=== PATIENT | female | born 1950 | race Caucasian/White ===

== ENCOUNTER 2017-05-22 11:38 | Observation (INO) ==
--- NOTE | 2017-05-22 11:52 | Emergency Department Note ---
Disposition Clinical Impression: Weakness, UTI (urinary tract infection), Frail elderly, Diabetes, Hyperglycemia , COPD (chronic obstructive pulmonary disease), Abnormal liver function test, Renal insufficiency, History of prolapse of bladder, Diverticulosis, Hepatic steatosis Disposition: Admitted As Inpatient Referrals: NO,PCP [Non-Partnered Physician] - General Adult HPI - General Chief complaint: ED Urogenital-Female Stated complaint: UTI Time Seen by Provider: 05/22/17 11:50 Source: patient - History of Present Illness HPI Narrative: 66-year-old female reports emergency department complaining of dysuria. She states she has had burning with her urination over the last several days. She states she went an urgent care had a urinalysis test, she was placed on ciprofloxacin. They called later and reported that the patient had a negative urine culture and recommended she discontinue the antibiotic. The patient reports she has had problems with a prolapsed bladder mostly. She denies abdominal pain vomiting diarrhea or vaginal discharge or bleeding. There is no history of tissue protruding from the vagina. She has been able to void. No back pain. No previous history of kidney stones. She is diabetic type II. The patient is COPD and does wear oxygen. She denies acute shortness of breath or chest pain. No leg swelling or pain or coughing up blood. No acute back pain. No bowel problems or difficulty voiding. Pain is backs of the legs. No trouble moving the arms or legs independently. No unilateral arm or leg weakness or numbness no bowel or bladder problems otherwise. The patient describes persistent dysuria. No history of external vaginal lesion or redness. Pain Scale: 10 - Related Data Home Medications Medication Instructions Recorded Confirmed Atenolol/Chlorthalidone [Tenoretic 1 each PO 05/19/17 05/19/17 50 Tablet] Canagliflozin [Invokana] 300 mg PO 05/19/17 Cholecalciferol (Vitamin D3) 1,000 unit PO 05/19/17 [Vitamin D] FLUoxetine HCl [PROzac] 20 mg PO 05/19/17 Lisinopril [Zestril] 40 mg PO 05/19/17 Omeprazole [Omeprazole] 05/19/17 Oxygen 1 each .ROUTE AD 05/19/17 05/19/17 Ropinirole HCl [Requip] 2 mg PO 05/19/17 Tizanidine HCl [Tizanidine HCl] 05/19/17 Previous Rx's Medication Instructions Recorded Ciprofloxacin [Cipro] 500 mg PO BID #14 tablet 05/19/17 Phenazopyridine HCl [Pyridium] 200 mg PO TID #6 tab 05/19/17 Allergies Allergy/AdvReac Type Severity Reaction Status Date / Time No Known Allergies Allergy Verified 05/19/17 15:59 All systems ED: reviewed and negative except as stated. Past Medical History - Past Medical History Medical history: Reports: non-contributory, COPD, diabetes, hypertension Psychiatric history: Reports: depression - Social History Smoking Status: Former smoker Smokeless Tobacco Status: No Alcohol use: Reports: none Drug use: Reports: none Physical Exam - General Limitations: no limitations General appearance: alert, in no apparent distress - Head Head exam: atraumatic, normocephalic, normal inspection - Eye Eye exam: Present: normal appearance, PERRL, EOMI. Absent: scleral icterus, conjunctival injection, miosis, mydriasis - ENT ENT exam: normal exam, normal oropharynx, mucous membranes moist, TM's normal bilaterally, normal external ear exam - Neck Neck exam: Present: normal inspection, full ROM, trachea midline. Absent: tenderness - Chest Chest inspection: Present: symmetric chest wall rise. Absent: tenderness - Respiratory Respiratory exam: Present: normal lung sounds bilaterally. Absent: respiratory distress, wheezes, stridor, accessory muscle use, prolonged expiratory phase - Cardiovascular Cardiovascular exam: Present: regular rate, normal rhythm, normal heart sounds - Abdominal Exam Abdominal exam: Present: soft, Non-Tender, normal bowel sounds. Absent: tenderness, distention, guarding, rebound, rigidity, pulsatile mass - Extremities Exam Extremities exam: Present: normal inspection, full ROM, normal capillary refill. Absent: tenderness, pedal edema, joint swelling, calf tenderness - Expanded Lower Extremity Exam Neurovascular/Tendon exam: Present: normal capillary refill. Absent: motor deficit, sensory deficit, tendon deficit, extremity cold to touch, pallor - Back Exam Back exam: Present: normal inspection, full ROM. Absent: tenderness, CVA tenderness (R), CVA tenderness (L), vertebral tenderness - Neurological Exam Neurological exam: Present: alert, oriented X3, CN II-XII intact. Absent: motor sensory deficit - Psychiatric Psychiatric exam: Present: normal affect, normal mood - Skin Skin exam: Present: warm, dry, intact, normal color. Absent: rash, cyanosis, diaphoresis, erythema, pallor, mottled Course Vital Signs Temperature 98 F 05/22/17 11:40 Pulse Rate 80 05/22/17 11:40 Respiratory Rate 18 05/22/17 11:40 Blood Pressure 112/63 05/22/17 11:40 O2 Sat by Pulse Oximetry 92 05/22/17 11:40 Temperature 98 F 05/22/17 11:40 Pulse Rate 78 05/22/17 14:38 Respiratory Rate 18 05/22/17 14:38 Blood Pressure 129/77 05/22/17 14:38 O2 Sat by Pulse Oximetry 94 05/22/17 14:38 Oxygen Delivery Oxygen Delivery Nasal Cannula Medical Decision Making - MDM Narrative Medical decision making narrative: The patient is elderly, has diabetes, her glucose is elevated, her BUN and creatinine are also elevated compared to previous. She describes weakness, there may be an element of dehydration. IV fluids were given. Rocephin ordered. Urine culture ordered. The patient appears to have failed outpatient therapy or was partially treated with ciprofloxacin. Based on her age, diabetes , uncontrolled glucose, apparent dehydration, complaints of weakness, COPD and hypoxemia, with significant urinary infectious changes, apparent partially treated UTI or failed outpatient therapy, stripper bladder prolapse, and significant urinary symptomatology, I thought it would be appropriate to admit the patient the hospital. I discussed the case with the hospitalist on-call who has accepted the patient to their care. - Lab Data Lab results reviewed: Yes I reviewed the patient's lab results. Result diagrams: 05/22/17 12:57 05/22/17 12:57 Lab Results 05/22/17 05/22/17 05/22/17 Range/Units 12:11 12:57 12:57 WBC 9.8 (4.3-11.1) K/mcL RBC 5.38 H (3.82-4.97) M/mcL Hgb 14.0 (11.5-15.4) g/dL Hct 44.4 (35.3-44.9) % MCV 82.5 L (83.0-100.0) fL MCH 26.0 L (28.0-33.3) pg MCHC 31.5 L (31.6-35.5) g/dL RDW 14.2 (11.5-14.5) % Plt Count 213 (140-400) K/mcL MPV 9.9 (9.4-12.4) fL Immature Gran % 0.8 (0-4) % Seg Neutrophils % 72.3 % Lymphocytes % 18.6 % Monocytes % 5.0 % Eosinophils % 2.8 % Basophils % 0.5 % Neutrophils # 7.1 (1.6-8.9) K/mcL Lymphocytes # 1.8 (0.6-4.6) K/mcL Monocytes # 0.5 (0.0-1.3) K/mcL Eosinophils # 0.3 (0.0-0.6) K/mcL Basophils # 0.1 (0.0-0.2) K/mcL Sodium 138 (136-145) mEq/L Potassium 3.9 (3.5-4.5) mEq/L Chloride 99 (98-109) mEq/L Carbon Dioxide 28 (19-29) mEq/L BUN 30 H (7-20) mg/dL Creatinine 1.64 H (0.57-1.11) mg/dL Est GFR ( Amer) 38 L (> 60) Est GFR (Non-Af Amer) 31 L (> 60) BUN/Creatinine Ratio 18 (6-26) Glucose 368 H (70-99) mg/dL Calculated Osmolality 307 H (280-300) Lactic Acid (0.5-2.2) mmol/L Calcium 10.3 (8.6-10.8) mg/dL Magnesium 1.7 (1.6-2.6) mg/dL Total Bilirubin (0.2-1.2) mg/dL Direct Bilirubin (0.0-0.5) mg/dL Indirect Bilirubin (0.0-1.2) mg/dL AST (5-34) Units/L ALT (0-55) Units/L Alkaline Phosphatase (38-126) Units/L Troponin I (0-0.03) ng/mL C-Reactive Protein (Less than 5) mg/L Serum Total Protein (6.0-8.3) g/dL Albumin (3.5-5.0) g/dL Globulin (2.4-3.5) g/dL Albumin/Globulin Ratio (1.1-2.2) Urine Color Dark Yellow (Yellow) Urine Clarity Cloudy A (Clear) Urine pH 5.5 (5.0-8.0) pH Units Ur Specific [place] > 1.030 H (1.010-1.025) Urine Protein Trace (Neg-Trace) mg/dL Urine Glucose (UA) >=1000 H (Normal) mg/dL Urine Ketones Negative (Negative) mg/dL Urine Blood Small H (Negative) Urine Nitrite Negative (Negative) Urine Bilirubin Negative (Negative) Urine Urobilinogen Normal (Normal) mg/dL Ur Leukocyte Esterase Moderate H (Negative) Urine Microscopic RBC 15-30 H (0-3) per hpf Urine Microscopic WBC TNTC H (0-3) per hpf Ur Squamous Epith Cells Many H (None-Few) per lpf Urine Bacteria Moderate H (None-Few) per hpf Hyaline Casts None Seen (None-Few) per lpf Ur Culture Indicated? YES A (NO) 05/22/17 05/22/17 05/22/17 Range/Units 12:57 12:57 12:57 WBC (4.3-11.1) K/mcL RBC (3.82-4.97) M/mcL Hgb (11.5-15.4) g/dL Hct (35.3-44.9) % MCV (83.0-100.0) fL MCH (28.0-33.3) pg MCHC (31.6-35.5) g/dL RDW (11.5-14.5) % Plt Count (140-400) K/mcL MPV (9.4-12.4) fL Immature Gran % (0-4) % Seg Neutrophils % % Lymphocytes % % Monocytes % % Eosinophils % % Basophils % % Neutrophils # (1.6-8.9) K/mcL Lymphocytes # (0.6-4.6) K/mcL Monocytes # (0.0-1.3) K/mcL Eosinophils # (0.0-0.6) K/mcL Basophils # (0.0-0.2) K/mcL Sodium (136-145) mEq/L Potassium (3.5-4.5) mEq/L Chloride (98-109) mEq/L Carbon Dioxide (19-29) mEq/L BUN (7-20) mg/dL Creatinine (0.57-1.11) mg/dL Est GFR ( Amer) (> 60) Est GFR (Non-Af Amer) (> 60) BUN/Creatinine Ratio (6-26) Glucose (70-99) mg/dL Calculated Osmolality (280-300) Lactic Acid 1.8 (0.5-2.2) mmol/L Calcium (8.6-10.8) mg/dL Magnesium (1.6-2.6) mg/dL Total Bilirubin 0.7 (0.2-1.2) mg/dL Direct Bilirubin 0.3 (0.0-0.5) mg/dL Indirect Bilirubin 0.4 (0.0-1.2) mg/dL AST 64 H (5-34) Units/L ALT 61 H (0-55) Units/L Alkaline Phosphatase 101 (38-126) Units/L Troponin I 0.02 (0-0.03) ng/mL C-Reactive Protein 27 H (Less than 5) mg/L Serum Total Protein 7.6 (6.0-8.3) g/dL Albumin 3.7 (3.5-5.0) g/dL Globulin 3.9 H (2.4-3.5) g/dL Albumin/Globulin Ratio 0.9 L (1.1-2.2) Urine Color (Yellow) Urine Clarity (Clear) Urine pH (5.0-8.0) pH Units Ur Specific [place] (1.010-1.025) Urine Protein (Neg-Trace) mg/dL Urine Glucose (UA) (Normal) mg/dL Urine Ketones (Negative) mg/dL Urine Blood (Negative) Urine Nitrite (Negative) Urine Bilirubin (Negative) Urine Urobilinogen (Normal) mg/dL Ur Leukocyte Esterase (Negative) Urine Microscopic RBC (0-3) per hpf Urine Microscopic WBC (0-3) per hpf Ur Squamous Epith Cells (None-Few) per lpf Urine Bacteria (None-Few) per hpf Hyaline Casts (None-Few) per lpf Ur Culture Indicated? (NO) - Radiology Data Radiology results reviewed: Yes I reviewed the patient's radiology results.
[2017-05-22 12:44] LABS: Bilirubin,Urine Negative (Negative); Blood,Urine Small (Negative); Clarity,Urine Cloudy (Clear); Color,Urine Dark Yellow (Yellow); Glucose,Urine (UA) >=1000 mg/dL (Normal); Ketones,Urine Negative (Negative); Leukocyte Esterase,Urine Moderate (Negative); Nitrite,Urine Negative (Negative); PH,Urine 5.5 pH Units (5.0-8.0); Protein,Urine Trace mg/dL (Neg-Trace); Specific Gravity,Urine > 1.030 (1.010-1.025); Urobilinogen,Urine Normal (Normal)
[2017-05-22 12:47] LABS: Bacteria,Urine Moderate per hpf (None-Few); Hyaline Casts,Urine None Seen per lpf (None-Few); RBC,Urine 15-30 per hpf (0-3); Squamous Epithelial Cell,Urine Many per lpf (None-Few); WBC,Urine TNTC per hpf (0-3)
[2017-05-22 13:07] LABS: Basophils # 0.1 K/mcL (0.0-0.2); Basophils % 0.5 %; Eosinophils # 0.3 K/mcL (0.0-0.6); Eosinophils % 2.8 %; Hematocrit 44.4 % (35.3-44.9); Immature Granulocytes % 0.8 % (0-4); Lymphocytes # 1.8 K/mcL (0.6-4.6); Lymphocytes % 18.6 %; Mean Corpuscular HGB Conc 31.5 g/dL (31.6-35.5); Mean Corpuscular Volume 82.5 fL (83.0-100.0); Mean Platelet Volume 9.9 fL (9.4-12.4); Monocytes # 0.5 K/mcL (0.0-1.3); Neutrophils # 7.1 K/mcL (1.6-8.9); Platelet Count 213 K/mcL (140-400); Red Blood Count 5.38 M/mcL (3.82-4.97); Red Cell Distribution Width 14.2 % (11.5-14.5); Segmented Neutrophils % 72.3 %
[2017-05-22 13:25] LABS: Albumin 3.7 g/dL (3.5-5.0); Albumin/Globulin Ratio 0.9 (1.1-2.2); Bilirubin,Direct 0.3 mg/dL (0.0-0.5); Bilirubin,Indirect 0.4 mg/dL (0.0-1.2); Bilirubin,Total 0.7 mg/dL (0.2-1.2); Calcium 10.3 mg/dL (8.6-10.8); Globulin 3.9 g/dL (2.4-3.5); Magnesium 1.7 mg/dL (1.6-2.6); Potassium 3.9 mEq/L (3.5-4.5); Total Protein 7.6 g/dL (6.0-8.3)
[2017-05-22] MEDS ORDERED: 0.9 % Sodium Chloride 1,000 ML IVC ONE (14:11)
[2017-05-22] MEDS ORDERED: Naloxone 0.4 MG/ML INJ IVP PRN (16:08)
[2017-05-22] MEDS ORDERED: *HR* OxyCODONE Immed Rel 5 MG TABLET PO PRN (16:08)
[2017-05-22] MEDS ORDERED: Acetaminophen 325 MG TABLET PO PRN (16:08)
[2017-05-22] MEDS ORDERED: Ondansetron 4 MG/2 ML VIAL IVP PRN (16:08)
[2017-05-22] MEDS ORDERED: Dextrose Gel 15 GM PO PRN ×2 (16:09)
[2017-05-22] MEDS ORDERED: D5% in Water 1,000 ML IVC PRN (16:09)
[2017-05-22] MEDS ORDERED: *HR* Dextrose 50 % in Water (Syg) 50 ML SYRINGE IVP PRN (16:09)
--- NOTE | 2017-05-22 16:20 | Internal Med History&Physical ---
Date of Encounter: 05/22/17 Time of Encounter: 16:00 Assessment and Plan (1) FAUSTINA (acute kidney injury) Current visit: Yes Status: Acute Serum creatinine noted to be around 1 at baseline, currently 1.6; probably mild dehydration and urine retention with use of diuretics/NSAIDs/ACEI; will start IV hydration and hold Lisinopril, Chlorthalidone for now. Will check bladder ultrasound for anatomic abnormality/retention; (2) UTI (urinary tract infection) Current visit: Yes Status: Acute Urine culture from 05/19 shows no bacterial growth. However symptoms along with h/o- bladder prolapse and suprapubic tenderness, UA with modertae leukocyte esterase, TNTC WBC, moderate bacteria, are c/w UTI/acute cystitis. Will start empiric antibiotics with IV Rocephin and f/up urine culture. Pyridium along with PRN Percocet for pain control. IV hydration. Qualifiers: Urinary tract infection type: acute cystitis Hematuria presence: without hematuria Qualified Code(s): N30.00 - Acute cystitis without hematuria (3) Diabetes Current visit: Yes Status: Chronic Currently has hyperglycemia and uncontrolled DM. No e/o- DKA/HHONKS. Start Accucheck blood glucose monitoring with basal bolus insulin regimen. Check HbA1C. Diabetic diet. Qualifiers: Diabetes mellitus type: type 2 Diabetes mellitus complication status: with hyperglycemia Diabetes mellitus custodial insulin use: with termite treater use Qualified Code(s): E11.65 - Type 2 diabetes mellitus with hyperglycemia; Z79.4 - FPC (current) use of insulin (4) COPD (chronic obstructive pulmonary disease) Current visit: Yes Status: Chronic Not in acute exacerbation. Continue PRN bronchodilators and supplemental O2; noted to be on 3L/min home O2; Qualifiers: COPD type: emphysema Emphysema type: unspecified Qualified Code(s): J43.9 - Emphysema, unspecified (5) History of prolapse of bladder Current visit: Yes Status: Chronic recommended surgery in the past but could not afford it per patient; (6) Hepatic steatosis Current visit: Yes Status: Chronic CT abdomen shows hepatomegaly and steatosis; AST/ALT mildly elevated; low fat diet; check lipid panel; Internal Medicine - H&P: HPI Chief complaint: Dysuria Admitted From: Emergency Dept Plans for Post Hospital Care: Home History of present illness: Ms. Ritter is a 66 year old female with h/o- DM, bladder prolapse presents with c/o- burning micturition for the past 1 week. SHe reports no increased frequency of urination but does have significant burning pain like a 'bee sting ' every time she urinates. No definite h/o- hematuria as she reports orange colored urine due to Pyridium use. No reported fever/chills, abdominal pain, nausea/emesis, dyspnea. Was seen at Urgent care 3-4 days ago and was discharged on Ciprofloxacin for possible UTI, which she took for 1-2 doses after which she received a call from the Urgent Care stating that her urine culture grew no bacteria and recommended to stop the antibiotics. Past Med Surg Social Fam HX - Past Medical History Medical history: COPD, diabetes, hypertension Psychiatric history: depression - Past Surgical History Surgical History: hysterectomy - Social History Smoking Status: Former smoker (quit 6yrs ago; smoked 1pack per day for 40years) Smokeless Tobacco Status: No Alcohol use: none Drug use: none Current living situation: Home, With Family Activity Level: Independent ambulation Recent Out of Country Travel Within the Last 8 Weeks: No - Family History Grandfather Hx Family Endocrine Disorder: Yes (DM) Internal Medicine - H&P: Meds Canagliflozin [Invokana] 300 mg PO DAILY 05/19/17 [History] Cholecalciferol (Vitamin D3) [Vitamin D] 1,000 unit PO DAILY 05/19/17 [History] Ciprofloxacin [Cipro] 500 mg PO BID #14 tablet 05/19/17 [Rx] FLUoxetine HCl [PROzac] 20 mg PO DAILY 05/19/17 [History] Lisinopril [Zestril] 40 mg PO DAILY 05/19/17 [History] Oxygen 3 l NS CONT 05/19/17 [History] Ropinirole HCl [Requip] 4 mg PO HS 05/19/17 [History] Tizanidine HCl [Tizanidine HCl] 4 mg PO Q8H PRN 05/19/17 [History] Atenolol/Chlorthalidone [Tenoretic 100 Tablet] 1 each PO DAILY 05/22/17 [History ] Ibuprofen [Motrin] 400 mg PO Q8HR PRN 05/22/17 [History] Insulin DETEMIR [Levemir] 80 unit SQ HS 05/22/17 [History] Omeprazole [PriLOSEC] 40 mg PO DAILY 05/22/17 [History] Tramadol HCl [Ultram] 50 mg PO TID PRN 05/22/17 [History] Allergies No Known Allergies Allergy (Verified 05/19/17 15:59) All Systems PM: A 10-system review of systems was performed and is negative for pertinent findings except as documented above in the HPI. - Constitutional Constitutional: no chills, no fever(s), no night sweats - EENT Eyes: no change in vision, no discharge, no pain, no photophobia Ears: no ear discharge, no ear pain, no tinnitus Nose, mouth and throat: no dysphagia, no nasal discharge, no neck pain, no sore throat - Cardiovascular Cardiovascular ROS IM: no chest pain, no diaphoresis, no dyspnea, no lightheadedness, no palpitations, no syncope - Respiratory Respiratory: no cough, no dyspnea, no wheezing, no excessive phlegm production - Gastrointestinal Gastrointestinal: no abdominal pain, no diarrhea, no hematemesis, no hematochezia, no melena, no nausea, no vomiting - Genitourinary Genitourinary: as per HPI - Musculoskeletal Musculoskeletal ROS IM: no numbness, no tingling - Integumentary Integumentary IM: no rash, no unusual bruising - Neurological Neurological ROS: burning sensations (in her feet due to diabetic neuropathy), no confusion, no convulsions, no focal weakness, no numbness, no tingling, no tremor(s) - Hematologic/Lymphatic Hematologic/Lymphatic: no easy bruising - Constitutional Vitals: Temp Pulse Resp BP Pulse Ox 98 F 74 18 129/70 94 05/22/17 11:40 05/22/17 15:59 05/22/17 14:38 05/22/17 15:59 05/22/17 14:38 General appearance: Present: mild distress, A&O X 3, answers questions appropriately - Respiratory Respiratory exam: Present: CTAB (B/L coarse breath sounds). Absent: accessory muscle use, rales, rhonchi, wheezes - Cardiovascular Cardiovascular exam: Present: RRR, +S1, +S2, systolic murmur. Absent: diastolic murmur, gallop, rubs - GI/Abdominal GI/Abdominal exam: Present: normal bowel sounds, soft (suprapubic tenderness+), no peritoneal signs. Absent: distended, tenderness - Extremities Exam Extremities exam: Present: full ROM, warm, radial pulses palpable and symetrical. Absent: calf tenderness, cyanotic, pedal edema - Neurological Exam Neurological exam: Present: CN II-XII intact, oriented X3, no focal deficits. Absent: pronater drift, facial droop, speech deficit - Skin Skin exam: Present: dry, intact Internal Med - H&P Results - Labs CBC & Chem 7: 05/22/17 12:57 05/22/17 12:57 Labs: Short CBC 05/22/17 Range/Units 12:57 WBC 9.8 (4.3-11.1) K/mcL Hgb 14.0 (11.5-15.4) g/dL Hct 44.4 (35.3-44.9) % Plt Count 213 (140-400) K/mcL Neutrophils # 7.1 (1.6-8.9) K/mcL BMP 05/22/17 12:57 Sodium 138 Potassium 3.9 Chloride 99 Carbon Dioxide 28 BUN 30 H Creatinine 1.64 H Glucose 368 H Calcium 10.3 Cardiac Enzymes 05/22/17 Range/Units 12:57 Troponin I 0.02 (0-0.03) ng/mL Liver Function 05/22/17 Range/Units 12:57 Total Bilirubin 0.7 (0.2-1.2) mg/dL Direct Bilirubin 0.3 (0.0-0.5) mg/dL AST 64 H (5-34) Units/L ALT 61 H (0-55) Units/L Alkaline Phosphatase 101 (38-126) Units/L Albumin 3.7 (3.5-5.0) g/dL Urine 05/22/17 Range/Units 12:11 Urine Color Dark Yellow (Yellow) Urine Clarity Cloudy A (Clear) Urine pH 5.5 (5.0-8.0) pH Units Ur Specific [place] > 1.030 H (1.010-1.025) Urine Protein Trace (Neg-Trace) mg/dL Urine Glucose (UA) >=1000 H (Normal) mg/dL - EKG Data -: EKG Interpreted by Myself EKG shows normal: sinus rhythm Rate: normal - Impressions ITS Impressions Chest X-Ray 05/22/17 12:27 IMPRESSION: No acute process. D/ / Rich Renteria MD / Rich Renteria MD Interpreting Provider: Rich Renteria MD Abdomen/Pelvis CT 05/22/17 12:34 IMPRESSION: 1. No acute intra-abdominal abnormality. 2. Hepatomegaly with steatosis. 3. Severe diverticulosis. 4. Severe atherosclerosis. 5. Status post hysterectomy. D/ / 05/22/2017 14:30:00 Adriana Cabrera MD / carmen Interpreting Provider: Adriana Cabrera MD
[2017-05-22] MEDS: Insulin LISPRO 300 UNITS/3 ML VIAL SQ SCH ×2 (17:24→23:00)
[2017-05-22] MEDS: 0.9 % Sodium Chloride 1,000 ML IVC SCH (17:24)
[2017-05-22 17:31] LABS: Hemoglobin A1C 10.2 %
[2017-05-22] MEDS: Insulin DETEMIR 100 UNIT/ML X5UNITS SQ SCH (23:00)
[2017-05-23] MEDS: *HR* Morphine 2 MG/ML SYRINGE IVP PRN ×2 (00:31→06:39)
[2017-05-23 04:45] LABS: Basophils % 0.4 %; Eosinophils # 0.3 K/mcL (0.0-0.6); Eosinophils % 3.6 %; Hematocrit 37.3 % (35.3-44.9); Immature Granulocytes % 0.9 % (0-4); Lymphocytes # 2.4 K/mcL (0.6-4.6); Lymphocytes % 32.4 %; Mean Corpuscular HGB Conc 31.6 g/dL (31.6-35.5); Mean Corpuscular Hemoglobin 26.3 pg (28.0-33.3); Mean Corpuscular Volume 83.1 fL (83.0-100.0); Mean Platelet Volume 9.7 fL (9.4-12.4); Monocytes # 0.5 K/mcL (0.0-1.3); Neutrophils # 4.3 K/mcL (1.6-8.9); Platelet Count 156 K/mcL (140-400); Red Blood Count 4.49 M/mcL (3.82-4.97); Red Cell Distribution Width 14.4 % (11.5-14.5); Segmented Neutrophils % 56.7 %
[2017-05-23 04:48] LABS: Hemoglobin 11.8 g/dL (11.5-15.4)
[2017-05-23 04:55] LABS: Calcium 8.9 mg/dL (8.6-10.8); Chol/HDL Ratio 6.5 (0-4.9); Potassium 3.3 mEq/L (3.5-4.5)
[2017-05-23] MEDS: 0.9 % Sodium Chloride 1,000 ML IVC SCH (08:16)
[2017-05-23] MEDS: Insulin LISPRO 300 UNITS/3 ML VIAL SQ SCH ×4 (08:18→21:42)
[2017-05-23] MEDS: Insulin DETEMIR 100 UNIT/ML X5UNITS SQ SCH ×2 (08:18→21:41)
--- NOTE | 2017-05-23 11:21 | Electrocardiograph Report ---
[address] [address] Test Date: 2017-05-22 Pat Name: Krystal Ritter Department: 105 Room: 2A16 Gender: F Video Coordinator: : 1950 Requested By: Toño Escobar Order Number: [id number] Reading MD: Dionicio Chowdhury MD Measurements Intervals [place] Rate: 73 P: 50 HI: 158 QRS: 1 QRSD: 69 T: 73 QT: 408 QTc: 434 Interpretive Statements SINUS RHYTHM Electronically Signed On 05-23-2017 11:19:59 EDT by Dionicio Chowdhury MD
[2017-05-23] MEDS: rOPINIRole 1 MG TABLET PO SCH ×2 (12:38→21:42)
[2017-05-23] MEDS ORDERED: tiZANidine 4 MG TABLET PO PRN (13:43)
[2017-05-23 17:10] LABS: HSV Source labia
--- NOTE | 2017-05-23 17:32 | OB/GYN Consult Note ---
Date of Encounter: 05/23/17 Time of Encounter: 16:30 Assessment and Plan (1) Vulvar lesion Current Visit: Yes Status: Acute Bilateral labia excoriated. DD: irritation from incontinence, yeast or bacterial infection, HSV. HSV culture and vaginosis panel collected. HSV IGG ordered. Pt reports pain has improved. Will await lab results before treating in presence of FAUSTINA and ongoing liver disease. POC per Dr. Lopes (2) History of prolapse of bladder Current Visit: Yes Status: Chronic Pt to follow-up with Dr. Forrest for assessment and possible pessary. (3) Incontinence in female Current Visit: Yes Status: Acute Pt to follow-up with Dr. Forrest. History of Present Illness Consult date: 05/23/17 Requesting physician: Sandy Cobb Reason for consult: other (labial lesion) History of present illness: 66 year-old female presented to ED with c/o dysuria. She states she had burning with her urination over the last several days for which she went an urgent care had a urinalysis test, she was placed on ciprofloxacin. They called later and reported that the patient had a negative urine culture and recommended she discontinue the antibiotic. She then presented to the ED for the same complaint and has been started on antibiotics for suspected UTI. She states that her pain has improved since the UTI has been treated. She does report a history of bladder prolapse. She denies abdominal pain, vomiting, diarrhea, or increased vaginal discharge or bleeding. She is s/p total hysterectomy in 1987 for benign reasons. She sees Dr. Forrest for DIRECTOR OF CONTENT MARKETING care but reports she hasn't seen her in years. She has been able to void and does admit to some bladder leaking which is normal for her. She is diabetic type II and has an FAUSTINA with this admission and ongoing liver disease. She denies any history of STI including HSV. She states that she and her have not had intercourse in several years. Past Med Surg Social Fam HX - Past Medical History Medical history: COPD, diabetes, hypertension Psychiatric history: depression - Past Surgical History Surgical History: hysterectomy - Social History Smoking Status: Former smoker Smokeless Tobacco Status: No Alcohol use: none Drug use: none - Family History Grandfather Hx Family Endocrine Disorder: Yes (DM) Medications and Allergies Canagliflozin [Invokana] 300 mg PO DAILY 05/19/17 [History] Cholecalciferol (Vitamin D3) [Vitamin D] 1,000 unit PO DAILY 05/19/17 [History] Ciprofloxacin [Cipro] 500 mg PO BID #14 tablet 05/19/17 [Rx] FLUoxetine HCl [PROzac] 20 mg PO DAILY 05/19/17 [History] Lisinopril [Zestril] 40 mg PO DAILY 05/19/17 [History] Oxygen 3 l NS CONT 05/19/17 [History] Ropinirole HCl [Requip] 4 mg PO HS 05/19/17 [History] Tizanidine HCl [Tizanidine HCl] 4 mg PO Q8H PRN 05/19/17 [History] Atenolol/Chlorthalidone [Tenoretic 100 Tablet] 1 each PO DAILY 05/22/17 [History ] Ibuprofen [Motrin] 400 mg PO Q8HR PRN 05/22/17 [History] Insulin DETEMIR [Levemir] 80 unit SQ HS 05/22/17 [History] Omeprazole [PriLOSEC] 40 mg PO DAILY 05/22/17 [History] Tramadol HCl [Ultram] 50 mg PO TID PRN 05/22/17 [History] Allergies No Known Allergies Allergy (Verified 05/19/17 15:59) Review of Systems Constitutional: no chills, no fever(s) Gastrointestinal: no diarrhea Genitourinary Female: dysuria (improved since admission), genital lesions ( labial irritation), genital pruritis (mild, intermittent itching), urinary incontinence, vaginal discharge (no new discharge, only scant amount as normal) , no abnormal vaginal bleeding, no vaginal odor Menstruation: post hysterectomy Exam - Vital Signs Vital signs: Initial Vital Signs Temp Pulse Resp BP Pulse Ox 98 F 80 18 112/63 92 05/22/17 11:40 05/22/17 11:40 05/22/17 11:40 05/22/17 11:40 05/22/17 11:40 - Constitutional Constitutional: no acute distress - HEENT HEENT: Mucus Membranes Moist - Vulva Vulva: bilateral: ulceration (bilateral labia minora erythemic and ulcerated, painful to touch) - Vagina Vagina: Present: discharge (scant, thin, clear discharge), cystocele - Cervix Cervix: Present: absent - Uterus Uterus exam: Present: absent Results Result Diagrams: 05/23/17 04:04 05/23/17 04:04 Abnormal lab results MCH 26.3 pg (28.0-33.3) L 05/23/17 04:04 Potassium 3.3 mEq/L (3.5-4.5) L 05/23/17 04:04 BUN 28 mg/dL (7-20) H 05/23/17 04:04 Creatinine 1.30 mg/dL (0.57-1.11) H 05/23/17 04:04 Est GFR ( Amer) 50 (> 60) L 05/23/17 04:04 Est GFR (Non-Af Amer) 41 (> 60) L 05/23/17 04:04 Glucose 182 mg/dL (70-99) H 05/23/17 04:04 POC Glucose 217 (58-89) H 05/23/17 16:08 Hemoglobin A1c 10.2 % (-5.6) H 05/22/17 12:57 AST 64 Units/L (5-34) H 05/22/17 12:57 ALT 61 Units/L (0-55) H 05/22/17 12:57 C-Reactive Protein 27 mg/L (Less than 5) H 05/22/17 12:57 Globulin 3.9 g/dL (2.4-3.5) H 05/22/17 12:57 Albumin/Globulin Ratio 0.9 (1.1-2.2) L 05/22/17 12:57 Triglycerides 214 mg/dL (< 150) H 05/23/17 04:04 LDL Cholesterol, Calc 111 mg/dL (0-99) H 05/23/17 04:04 VLDL Cholesterol, Calc 43 mg/dL (< 31) H 05/23/17 04:04 HDL Cholesterol 28 mg/dL (40-59) L 05/23/17 04:04 Cholesterol/HDL Ratio 6.5 (0-4.9) H 05/23/17 04:04 Urine Clarity Cloudy (Clear) A 05/22/17 12:11 Ur Specific [place] > 1.030 (1.010-1.025) H 05/22/17 12:11 Urine Glucose (UA) >=1000 mg/dL (Normal) H 05/22/17 12:11 Urine Blood Small (Negative) H 05/22/17 12:11 Ur Leukocyte Esterase Moderate (Negative) H 05/22/17 12:11 Urine Microscopic RBC 15-30 per hpf (0-3) H 05/22/17 12:11 Urine Microscopic WBC TNTC per hpf (0-3) H 05/22/17 12:11 Ur Squamous Epith Cells Many per lpf (None-Few) H 05/22/17 12:11 Urine Bacteria Moderate per hpf (None-Few) H 05/22/17 12:11 Ur Culture Indicated? YES (NO) A 05/22/17 12:11 All other labs normal. Consult Discharge Plan - Plan Referrals: Jarad Reza MD [Primary Care Provider] - 05/31/17 11:30 am ()
--- NOTE | 2017-05-23 17:58 | Internal Med Progress Note ---
Date of Encounter: 05/23/17 Time of Encounter: 14:45 - Assessment and plan (1) Vulvar lesion Current Visit: Yes Status: Acute Assessment and plan: Patient noted to have bilateral labial excoriations/ulcers. ECOLOGY PROFESSOR consult. (2) FAUSTINA (acute kidney injury) Current Visit: Yes Status: Resolved Assessment and plan: Serum creatinine noted to be improving with IV hydration, currently 1.3 consistent with baseline. Stop IV hydration for now and monitor closely. (3) UTI (urinary tract infection) Current Visit: Yes Status: Acute Assessment and plan: Urinalysis is suggestive of UTI, however urine culture is noted to be grossly contaminated and difficult to confirm UTI. Continue IV Rocephin to complete a 3 day course. Qualifiers: Urinary tract infection type: acute cystitis Hematuria presence: without hematuria Qualified Code(s): N30.00 - Acute cystitis without hematuria (4) Diabetes Current Visit: Yes Status: Chronic Assessment and plan: Uncontrolled with hemoglobin A1c 10.2%. Blood sugars noted to be better controlled today. Continue Accu-Chek blood glucose monitoring with basal bolus insulin regimen. Diabetic diet. nurse informatics educator consult. Qualifiers: Diabetes mellitus type: type 2 Diabetes mellitus complication status: with hyperglycemia Diabetes mellitus alf insulin use: with watermelon harvesting supervisor use Qualified Code(s): E11.65 - Type 2 diabetes mellitus with hyperglycemia; Z79.4 - terminal carman (current) use of insulin (5) COPD (chronic obstructive pulmonary disease) Current Visit: Yes Status: Chronic Qualifiers: COPD type: emphysema Emphysema type: unspecified Qualified Code(s): J43.9 - Emphysema, unspecified (6) History of prolapse of bladder Current Visit: Yes Status: Chronic (7) Hepatic steatosis Current Visit: Yes Status: Chronic Assessment and plan: Lipid panel reviewed, noted to have elevated triglycerides at 214, mildly elevated LDL 111 and low HDL 28. Lifestyle modification, will start niacin and hold statin at this time due to mildly elevated liver enzymes. - Subjective Interval history: Reports feeling better but continues to have some burning while urinating. No nausea, vomiting, fever or chills. No lower abdominal pain. - Constitutional Vitals: Temp Pulse Resp BP Pulse Ox 98.3 F 75 16 120/71 95 05/23/17 16:05 05/23/17 16:05 05/23/17 16:05 05/23/17 16:05 05/23/17 16:05 General appearance: Present: A&O X 3, answers questions appropriately - Respiratory Respiratory exam: Present: CTAB. Absent: accessory muscle use, rales, rhonchi, wheezes - Cardiovascular Cardiovascular exam: Present: RRR, +S1, +S2. Absent: diastolic murmur, gallop, rubs, systolic murmur - External exam: Present: lesions (Noted to have a lacy white lesions with surrounding erythema and tenderness on bilateral labia, concerning for possible herpes infection) - Extremities Exam Extremities exam: Present: full ROM, warm, radial pulses palpable and symetrical. Absent: calf tenderness, cyanotic, pedal edema Internal Medicine: Result - Labs CBC & Chem 7: 05/23/17 04:04 05/23/17 04:04 Labs: Short CBC 05/23/17 Range/Units 04:04 WBC 7.5 (4.3-11.1) K/mcL Hgb 11.8 D (11.5-15.4) g/dL Hct 37.3 (35.3-44.9) % Plt Count 156 (140-400) K/mcL Neutrophils # 4.3 (1.6-8.9) K/mcL BMP 05/23/17 04:04 Sodium 139 Potassium 3.3 L Chloride 103 Carbon Dioxide 28 BUN 28 H Creatinine 1.30 H Glucose 182 H Calcium 8.9 - Impressions Impressions Bladder Ultrasound 05/22/17 22:15 IMPRESSION: 1. There is debris that layers in the dependent portion of the bladder. Underlying infection cannot be excluded. 2. Minimal emptying of the bladder with voiding. 3. No intraluminal bladder mass is identified. D/ / 05/23/2017 07:03:26 Miguelito Perez MD / bcarter Interpreting Provider: Miguelito Perez MD Consult Discharge Plan - Plan Referrals: Jarad Reza MD [Primary Care Provider] - 05/31/17 11:30 am ()
[2017-05-23 18:31] LABS: Candida DNA ***DETECTED*** (Not Detect); Gardnerella DNA Not Detected (Not Detect); Trichomonas DNA Not Detected (Not Detect)
[2017-05-23] MEDS ORDERED: Fluconazole 100 MG TABLET PO ONE (18:46)
[2017-05-23] MEDS ORDERED: rOPINIRole 1 MG TABLET PO SCH (21:00)
[2017-05-24] MEDS: *HR* Morphine 2 MG/ML SYRINGE IVP PRN (00:03)
[2017-05-24 04:35] LABS: Alanine Aminotransferase 54 Units/L (0-55); Albumin 3.3 g/dL (3.5-5.0); Albumin/Globulin Ratio 0.9 (1.1-2.2); Alkaline Phosphatase 85 Units/L (38-126); Aspartate Amino Transferase 47 Units/L (5-34); BUN/Creatinine Ratio 22 (6-26); Bilirubin,Total 0.4 mg/dL (0.2-1.2); Blood Urea Nitrogen 21 mg/dL (7-20); Calcium 9.2 mg/dL (8.6-10.8); Carbon Dioxide 30 mEq/L (19-29); Chloride 106 mEq/L (98-109); Globulin 3.5 g/dL (2.4-3.5); Glucose 114 mg/dL (70-99); Osmolality,Calculated 300 (280-300); Potassium 3.6 mEq/L (3.5-4.5); Sodium 143 mEq/L (136-145); Total Protein 6.8 g/dL (6.0-8.3); eGFR For African Americans > 60 (> 60); eGFR For Non-African Americans 59 (> 60)
[2017-05-24] MEDS: Insulin DETEMIR 100 UNIT/ML X5UNITS SQ SCH (08:19)
[2017-05-24] MEDS: Insulin LISPRO 300 UNITS/3 ML VIAL SQ SCH ×3 (08:20→16:58)
[2017-05-24] MEDS ORDERED: FLUoxetine 20 MG CAPSULE PO SCH (09:00)
[2017-05-24 09:13] LABS: HSV 1 DNA Not Detected (Not Detect); HSV 2 DNA ***DETECTED*** (Not Detect)
--- NOTE | 2017-05-24 09:44 | OB/GYN Consult Note ---
Date of Encounter: 05/24/17 Time of Encounter: 09:42 Assessment and Plan (1) HSV-2 seropositive Current Visit: Yes Status: Acute HSV-2 IgG positive. Cultures pending. Begin Acyclovir PO Follow up in one week in office with primary RELATIONSHIP EXECUTIVE or Dr Lopes if no history with an RELATIONSHIP EXECUTIVE Discharged from RELATIONSHIP EXECUTIVE standpoint. Thank you for the referral. Past Med Surg Social Fam HX - Past Medical History Medical history: COPD, diabetes, hypertension Psychiatric history: depression - Past Surgical History Surgical History: hysterectomy - Social History Smoking Status: Former smoker Smokeless Tobacco Status: No Alcohol use: none Drug use: none - Family History Grandfather Hx Family Endocrine Disorder: Yes (DM) Medications and Allergies Canagliflozin [Invokana] 300 mg PO DAILY 05/19/17 [History] Cholecalciferol (Vitamin D3) [Vitamin D] 1,000 unit PO DAILY 05/19/17 [History] Ciprofloxacin [Cipro] 500 mg PO BID #14 tablet 05/19/17 [Rx] FLUoxetine HCl [PROzac] 20 mg PO DAILY 05/19/17 [History] Lisinopril [Zestril] 40 mg PO DAILY 05/19/17 [History] Oxygen 3 l NS CONT 05/19/17 [History] Ropinirole HCl [Requip] 4 mg PO HS 05/19/17 [History] Tizanidine HCl [Tizanidine HCl] 4 mg PO Q8H PRN 05/19/17 [History] Atenolol/Chlorthalidone [Tenoretic 100 Tablet] 1 each PO DAILY 05/22/17 [History ] Ibuprofen [Motrin] 400 mg PO Q8HR PRN 05/22/17 [History] Insulin DETEMIR [Levemir] 80 unit SQ HS 05/22/17 [History] Omeprazole [PriLOSEC] 40 mg PO DAILY 05/22/17 [History] Tramadol HCl [Ultram] 50 mg PO TID PRN 05/22/17 [History] Allergies No Known Allergies Allergy (Verified 05/19/17 15:59) Exam - Vital Signs Vital signs: Initial Vital Signs Temp Pulse Resp BP Pulse Ox 98 F 80 18 112/63 92 05/22/17 11:40 05/22/17 11:40 05/22/17 11:40 05/22/17 11:40 05/22/17 11:40 Results Result Diagrams: 05/23/17 04:04 05/24/17 03:29 Abnormal lab results MCH 26.3 pg (28.0-33.3) L 05/23/17 04:04 Carbon Dioxide 30 mEq/L (19-29) H 05/24/17 03:29 BUN 21 mg/dL (7-20) H 05/24/17 03:29 Est GFR (Non-Af Amer) 59 (> 60) L 05/24/17 03:29 Glucose 114 mg/dL (70-99) H 05/24/17 03:29 POC Glucose 211 (58-89) H 05/23/17 21:36 Hemoglobin A1c 10.2 % (-5.6) H 05/22/17 12:57 AST 47 Units/L (5-34) H 05/24/17 03:29 C-Reactive Protein 27 mg/L (Less than 5) H 05/22/17 12:57 Albumin 3.3 g/dL (3.5-5.0) L 05/24/17 03:29 Albumin/Globulin Ratio 0.9 (1.1-2.2) L 05/24/17 03:29 Triglycerides 214 mg/dL (< 150) H 05/23/17 04:04 LDL Cholesterol, Calc 111 mg/dL (0-99) H 05/23/17 04:04 VLDL Cholesterol, Calc 43 mg/dL (< 31) H 05/23/17 04:04 HDL Cholesterol 28 mg/dL (40-59) L 05/23/17 04:04 Cholesterol/HDL Ratio 6.5 (0-4.9) H 05/23/17 04:04 Urine Clarity Cloudy (Clear) A 05/22/17 12:11 Ur Specific [place] > 1.030 (1.010-1.025) H 05/22/17 12:11 Urine Glucose (UA) >=1000 mg/dL (Normal) H 05/22/17 12:11 Urine Blood Small (Negative) H 05/22/17 12:11 Ur Leukocyte Esterase Moderate (Negative) H 05/22/17 12:11 Urine Microscopic RBC 15-30 per hpf (0-3) H 05/22/17 12:11 Urine Microscopic WBC TNTC per hpf (0-3) H 05/22/17 12:11 Ur Squamous Epith Cells Many per lpf (None-Few) H 05/22/17 12:11 Urine Bacteria Moderate per hpf (None-Few) H 05/22/17 12:11 Ur Culture Indicated? YES (NO) A 05/22/17 12:11 Yareli species DNA DETECTED (Not Detect) A 05/23/17 16:48 HSV II DETECTED (Not Detect) A 05/23/17 16:48 All other labs normal. Consult Discharge Plan - Plan Referrals: Jarad Reza MD [Primary Care Provider] - 05/31/17 11:30 am ()
[2017-05-24 11:18] VITALS: BP 134/69
[2017-05-24] MEDS: Acyclovir 200 MG CAPSULE PO SCH ×2 (11:35→15:27)
--- NOTE | 2017-05-24 12:24 | Discharge Summary ---
Date of Encounter: 05/24/17 Time of Encounter: 12:22 - Discharge Diagnosis (1) Herpes simplex antibody positive Priority: Primary Status: Acute (2) FAUSTINA (acute kidney injury) Priority: Primary Status: Resolved (3) UTI (urinary tract infection) Priority: Primary Status: Ruled-out Qualifiers: Urinary tract infection type: acute cystitis Hematuria presence: without hematuria Qualified Code(s): N30.00 - Acute cystitis without hematuria (4) Diabetes Priority: Secondary Status: Chronic Qualifiers: Diabetes mellitus type: type 2 Diabetes mellitus complication status: with hyperglycemia Diabetes mellitus fpc insulin use: with terminal operations manager use Qualified Code(s): E11.65 - Type 2 diabetes mellitus with hyperglycemia; Z79.4 - skilled nursing (current) use of insulin (5) COPD (chronic obstructive pulmonary disease) Priority: Secondary Status: Chronic Qualifiers: COPD type: emphysema Emphysema type: unspecified Qualified Code(s): J43.9 - Emphysema, unspecified (6) History of prolapse of bladder Priority: Secondary Status: Chronic (7) Hepatic steatosis Priority: Secondary Status: Chronic - Discharge Medications Prescriptions: Acyclovir [Zovirax] 200 mg PO 5XD 7 Days Home Medications: Canagliflozin [Invokana] 300 mg PO DAILY 05/19/17 [History] Cholecalciferol (Vitamin D3) [Vitamin D3] 1,000 unit PO DAILY 05/19/17 [History] FLUoxetine HCl [Prozac] 20 mg PO DAILY 05/19/17 [History] Lisinopril [Zestril] 40 mg PO DAILY 05/19/17 [History] Oxygen 3 l NS CONT 05/19/17 [History] Ropinirole HCl [Requip] 4 mg PO HS 05/19/17 [History] Tizanidine HCl 4 mg PO Q8H PRN 05/19/17 [History] Atenolol/Chlorthalidone [Tenoretic 100 Tablet] 1 each PO DAILY 05/22/17 [History ] Insulin DETEMIR [Levemir] 80 unit SQ HS 05/22/17 [History] Omeprazole [PriLOSEC] 40 mg PO DAILY 05/22/17 [History] Tramadol HCl [Ultram] 50 mg PO TID PRN 05/22/17 [History] Acyclovir [Zovirax] 200 mg PO 5XD 7 Days 05/24/17 [Rx] Allergies/Adverse Reactions: Allergies No Known Allergies Allergy (Verified 05/19/17 15:59) Date of admission: 05/22/17 16:21 Primary care physician: Jarad Reza MD Consults: 05/23/17 15:56 Consult to BULLET SWAGING MACHINE OPERATOR [CONS] Routine Consulting Provider: DANCE CRITIC Devora Reason for Consult: Burning micturition, labial lesions concerning for HSV Call Completed: Yes Discharging clinician: Sandy Cobb Anticipated date of discharge: 05/24/17 - Patient Status Disposition: Home, Self-Care Condition: Good Functional capacity at discharge: independent ambulation Overall status at discharge: patient is progressing back to baseline - Discharge Instructions Instructions: Acyclovir (By mouth), Diverticulitis (DC) Follow Up With: Jarad Reza MD [Primary Care Provider] - 05/31/17 11:30 am () Forms: ED Satisfaction Letter Additional Instructions: F/up with Devora LINUX SYSTEMS ENGINEER- in 1-2 weeks - Diet and Activity Activity: resume usual activities as tolerated Diet: diabetic diet, low fat, low cholesterol, low salt diet Hospital course: Ms. Ritter is a 66 year old female with the above medical problems who was admitted with burning micturition. Initial labs done in the emergency room showed urinalysis suggestive of UTI and acute on chronic kidney injury. She was started on IV hydration for possible dehydration and IV antibiotics for possible UTI. She was noted to have improvement in her serum creatinine back to baseline but continued to have burning micturition. On examination, she was noted to have bilateral labial lesions consistent with possible viral/herpes infection. Gynecology was consulted and sent genital swab for PCR, which was positive for Yareli and HSV-2. She received 1 dose of oral Diflucan and is being discharged with oral acyclovir with outpatient gynecology follow-up. She is otherwise medically stable. Patient was also noted to have uncontrolled diabetes with hemoglobin A1c 10.2%. her blood sugars were well controlled while in the hospital with diabetic diet and basal bolus insulin regimen. She was encouraged to follow a diabetic diet and try to exercise at home. - Time Spent with Patient Total time spent providing and/or coordinating discharge services: Greater than 30 minutes (40 min) - Constitutional Vitals: Temp Pulse Resp BP Pulse Ox 97.7 F 64 16 134/69 93 05/24/17 11:16 06/30/17 11:16 05/24/17 11:16 05/24/17 11:16 05/24/17 11:16 General appearance: Present: A&O X 3, answers questions appropriately - Respiratory Respiratory exam: Present: CTAB. Absent: accessory muscle use, rales, rhonchi, wheezes - Cardiovascular Cardiovascular exam: Present: RRR, +S1, +S2, systolic murmur. Absent: diastolic murmur, gallop, rubs
[2017-05-27 10:31] LABS: HSV 2 Glycoprotein G IgG 7.25 IV (<=0.90)
== END 2017-05-24 18:05 | disposition home or self-care (01) ==
LOC: EMEROO 11:38 → 2ANU 11:38
PROVIDERS: ADMIT Internal Medicine; ATTEND Internal Medicine

== ENCOUNTER 2020-07-17 14:44 | Inpatient (IN) ==
[2020-07-17] MEDS ORDERED: *HR* Promethazine 25 MG/ML VIAL IVP PRN (16:56)
[2020-07-17] MEDS ORDERED: Naloxone 0.4 MG/ML INJ IVP PRN (16:56)
[2020-07-17] MEDS ORDERED: *HR* Heparin 5,000 UNIT/ML VIAL IVP PRN ×2 (17:06)
[2020-07-17] MEDS ORDERED: Perflutren Lipid Microsphere 1.3 ML in 0.9 % Sodium Chloride 8.7 ML IVP PRN (17:08)
[2020-07-17] MEDS ORDERED: DilTIAZem 50 MG/50 ML IV.SOLN IVC SCH (17:15)
[2020-07-17] MEDS ORDERED: *HR* Dextrose 50 % in Water (Vial) 50 ML VIAL IVP PRN (17:17)
[2020-07-17] MEDS ORDERED: D5% in Water 1,000 ML IVC PRN (17:17)
[2020-07-17] MEDS ORDERED: Dextrose Gel 15 GM/37.5 ML TUBE PO PRN ×2 (17:17)
[2020-07-17] MEDS ORDERED: Isovue-370 500 ML BOTTLE IVP ONE (17:18)
[2020-07-17] MEDS: Heparin 25,000UNIT/250ML 1/2NS 25,000 UNIT/250 ML IV.SOLN IVC SCH (17:36)
[2020-07-17] MEDS: Insulin LISPRO 300 UNITS/3 ML VIAL SQ SCH ×2 (17:37→19:53)
[2020-07-17] MEDS ORDERED: Levalbuterol Neb 0.63 MG/3 ML IH PRN (17:53)
[2020-07-17] MEDS: Budesonide/Formoterol 160/4.5 1 PUFF INH IH SCH (19:52)
[2020-07-17] MEDS ORDERED: Melatonin 3 MG TABLET PO ONE (21:29)
[2020-07-17] MEDS ORDERED: atenoloL 50 MG TABLET PO ONE (23:58)
[2020-07-18] MEDS ORDERED: Furosemide 20 MG/2 ML VIAL IVP ONE (01:45)
[2020-07-18 02:30] LABS: Basophils % 0.4 %; Eosinophils # 0.1 K/mcL (0.0-0.6); Eosinophils % 0.6 %; Hematocrit 33.7 % (35.3-44.9); Hemoglobin 10.5 g/dL (11.5-15.4); Immature Granulocytes % 0.5 % (0-4); Lymphocytes # 1.1 K/mcL (0.6-4.6); Lymphocytes % 11.6 %; Mean Corpuscular HGB Conc 31.2 g/dL (31.6-35.5); Mean Corpuscular Hemoglobin 26.6 pg (28.0-33.3); Mean Corpuscular Volume 85.3 fL (83.0-100.0); Mean Platelet Volume 9.8 fL (9.4-12.4); Monocytes # 0.5 K/mcL (0.0-1.3); Monocytes % 5.7 %; Neutrophils # 7.5 K/mcL (1.6-8.9); Platelet Count 170 K/mcL (140-400); Red Blood Count 3.95 M/mcL (3.82-4.97); Red Cell Distribution Width 15.8 % (11.5-14.5); Segmented Neutrophils % 81.2 %; White Blood Count 9.3 K/mcL (4.3-11.1)
[2020-07-18 02:50] LABS: BUN/Creatinine Ratio 24 (6-26); Blood Urea Nitrogen 25 mg/dL (8-23); Calcium 9.6 mg/dL (8.6-10.3); Carbon Dioxide 31 mEq/L (23-29); Chloride 98 mEq/L (98-107); Chol/HDL Ratio 2.9 (0-4.9); Cholesterol 168 mg/dL (< 200); Glucose 195 mg/dL (70-105); HDL Cholesterol 58 mg/dL (40-59); LDL Cholesterol,Calculated 84 mg/dL (< 100); Magnesium 1.8 mg/dL (1.6-2.6); Osmolality,Calculated 300 (280-300); Potassium 3.9 mEq/L (3.5-5.1); Sodium 140 mEq/L (136-145); Triglycerides 128 mg/dL (< 150); eGFR For African Americans > 60 (> 60); eGFR For Non-African Americans 52 (> 60)
[2020-07-18] MEDS: Acetaminophen 325 MG TABLET PO PRN ×2 (06:08→20:11)
[2020-07-18 08:00] LABS: Estimated Average Glucose 111 mg/dl; Hemoglobin A1C 5.5 %
[2020-07-18] MEDS: Aspirin Enteric Coated 81 MG Tablet PO SCH (08:33)
[2020-07-18] MEDS: Insulin LISPRO 300 UNITS/3 ML VIAL SQ SCH ×4 (08:33→21:06)
[2020-07-18] MEDS: Budesonide/Formoterol 160/4.5 1 PUFF INH IH SCH ×2 (10:53→19:47)
[2020-07-18] MEDS: amLODIPine 5 MG TABLET PO SCH (14:20)
[2020-07-18] MEDS: FLUoxetine 20 MG CAPSULE PO SCH (14:20)
[2020-07-18] MEDS: Heparin 25,000UNIT/250ML 1/2NS 25,000 UNIT/250 ML IV.SOLN IVC SCH (14:32)
[2020-07-18] MEDS: cefTRIAXone 1,000 MG in 0.9 % Sodium Chloride Mini Bag 100 ML IVPB SCH (16:15)
[2020-07-18] MEDS: Apixaban 5 MG TABLET PO SCH (20:10)
[2020-07-18] MEDS: Metoprolol XL (24 HR) Succ 50 MG TAB.ER.24H PO SCH (20:11)
[2020-07-18] MEDS ORDERED: CHLORTHALIDONE PO SCH (21:00)
[2020-07-18] MEDS ORDERED: ATENOLOL PO SCH (21:00)
[2020-07-18] MEDS ORDERED: [UNRECOGNIZED DRUG - OTHER] PO SCH (21:00)
[2020-07-18] MEDS ORDERED: atenoloL 50 MG TABLET PO SCH (21:00)
[2020-07-18] MEDS ORDERED: Melatonin 3 MG TABLET PO ONE (23:00)
[2020-07-19 01:46] LABS: Basophils % 0.4 %; Eosinophils # 0.1 K/mcL (0.0-0.6); Eosinophils % 1.1 %; Hematocrit 33.7 % (35.3-44.9); Hemoglobin 10.8 g/dL (11.5-15.4); Immature Granulocytes % 0.6 % (0-4); Lymphocytes # 1.5 K/mcL (0.6-4.6); Lymphocytes % 19.4 %; Mean Corpuscular Hemoglobin 27.1 pg (28.0-33.3); Mean Corpuscular Volume 84.7 fL (83.0-100.0); Mean Platelet Volume 9.7 fL (9.4-12.4); Monocytes # 0.6 K/mcL (0.0-1.3); Monocytes % 7.2 %; Neutrophils # 5.6 K/mcL (1.6-8.9); Platelet Count 167 K/mcL (140-400); Red Blood Count 3.98 M/mcL (3.82-4.97); Red Cell Distribution Width 15.6 % (11.5-14.5); Segmented Neutrophils % 71.3 %; White Blood Count 7.9 K/mcL (4.3-11.1)
[2020-07-19 02:11] LABS: BUN/Creatinine Ratio 30 (6-26); Blood Urea Nitrogen 24 mg/dL (8-23); Calcium 9.8 mg/dL (8.6-10.3); Carbon Dioxide 30 mEq/L (23-29); Chloride 96 mEq/L (98-107); Glucose 137 mg/dL (70-105); Osmolality,Calculated 292 (280-300); Potassium 3.2 mEq/L (3.5-5.1); Sodium 138 mEq/L (136-145); eGFR For African Americans > 60 (> 60); eGFR For Non-African Americans > 60 (> 60)
[2020-07-19] MEDS: Budesonide/Formoterol 160/4.5 1 PUFF INH IH SCH ×2 (07:51→19:44)
[2020-07-19 09:00] LABS: Heparin anti-factor XA UFH 0.49 IU/mL (0.30-0.70)
[2020-07-19] MEDS ORDERED: Furosemide 20 MG/2 ML VIAL IVP SCH (09:00)
[2020-07-19] MEDS: FLUoxetine 20 MG CAPSULE PO SCH (09:11)
[2020-07-19] MEDS: Insulin LISPRO 300 UNITS/3 ML VIAL SQ SCH ×4 (09:11→21:36)
[2020-07-19] MEDS: Apixaban 5 MG TABLET PO SCH (09:11)
[2020-07-19] MEDS: Aspirin Enteric Coated 81 MG Tablet PO SCH (09:11)
[2020-07-19] MEDS: amLODIPine 5 MG TABLET PO SCH (09:11)
[2020-07-19 10:02] LABS: INR 1.1; Prothrombin Time 12.9 Seconds (9.4-12.1)
[2020-07-19] MEDS: cefTRIAXone 1,000 MG in 0.9 % Sodium Chloride Mini Bag 100 ML IVPB SCH (16:43)
[2020-07-19] MEDS: *HR* Enoxaparin 80 MG/0.8 ML SYRINGE SQ SCH (17:26)
[2020-07-19] MEDS ORDERED: *HR* Warfarin 5 MG TABLET PO ONE (18:00)
[2020-07-19] MEDS ORDERED: Warfarin perPT PO PRN (18:00)
[2020-07-19] MEDS ORDERED: Melatonin 3 MG TABLET PO ONE (21:13)
[2020-07-19] MEDS: Metoprolol XL (24 HR) Succ 50 MG TAB.ER.24H PO SCH (21:33)
[2020-07-19] MEDS: Acetaminophen 325 MG TABLET PO PRN (23:40)
[2020-07-20] MEDS: *HR* Enoxaparin 80 MG/0.8 ML SYRINGE SQ SCH ×2 (04:42→17:09)
[2020-07-20 06:26] LABS: INR 1.1; Prothrombin Time 12.3 Seconds (9.4-12.1)
[2020-07-20 06:29] LABS: BUN/Creatinine Ratio 30 (6-26); Blood Urea Nitrogen 30 mg/dL (8-23); Calcium 9.8 mg/dL (8.6-10.3); Carbon Dioxide 28 mEq/L (23-29); Chloride 98 mEq/L (98-107); Glucose 197 mg/dL (70-105); Osmolality,Calculated 296 (280-300); Potassium 3.6 mEq/L (3.5-5.1); Sodium 137 mEq/L (136-145); eGFR For African Americans > 60 (> 60); eGFR For Non-African Americans 56 (> 60)
[2020-07-20] MEDS: Acetaminophen 325 MG TABLET PO PRN ×2 (06:43→20:13)
[2020-07-20] MEDS: Budesonide/Formoterol 160/4.5 1 PUFF INH IH SCH ×2 (07:48→20:23)
[2020-07-20] MEDS: FLUoxetine 20 MG CAPSULE PO SCH (08:27)
[2020-07-20] MEDS: amLODIPine 5 MG TABLET PO SCH (08:27)
[2020-07-20] MEDS: Aspirin Enteric Coated 81 MG Tablet PO SCH (08:28)
[2020-07-20] MEDS: Insulin LISPRO 300 UNITS/3 ML VIAL SQ SCH ×4 (08:28→20:15)
[2020-07-20] MEDS: cefTRIAXone 1,000 MG in 0.9 % Sodium Chloride Mini Bag 100 ML IVPB SCH (15:42)
[2020-07-20] MEDS ORDERED: *HR* Warfarin 2.5 MG TABLET PO ONE (18:00)
[2020-07-20] MEDS: Metoprolol XL (24 HR) Succ 50 MG TAB.ER.24H PO SCH (20:14)
[2020-07-21 02:07] LABS: Basophils % 0.4 %; Eosinophils # 0.3 K/mcL (0.0-0.6); Eosinophils % 2.6 %; Hematocrit 36.6 % (35.3-44.9); Hemoglobin 11.6 g/dL (11.5-15.4); Immature Granulocytes % 0.7 % (0-4); Lymphocytes # 2.2 K/mcL (0.6-4.6); Lymphocytes % 21.7 %; Mean Corpuscular HGB Conc 31.7 g/dL (31.6-35.5); Mean Corpuscular Hemoglobin 27.3 pg (28.0-33.3); Mean Corpuscular Volume 86.1 fL (83.0-100.0); Mean Platelet Volume 9.8 fL (9.4-12.4); Monocytes # 0.5 K/mcL (0.0-1.3); Monocytes % 5.4 %; Neutrophils # 6.9 K/mcL (1.6-8.9); Platelet Count 213 K/mcL (140-400); Red Blood Count 4.25 M/mcL (3.82-4.97); Red Cell Distribution Width 15.5 % (11.5-14.5); Segmented Neutrophils % 69.2 %
[2020-07-21 02:10] LABS: INR 1.1; Prothrombin Time 12.1 Seconds (9.4-12.1)
[2020-07-21 02:28] LABS: % Iron Saturation 10 % (15-50); BUN/Creatinine Ratio 26 (6-26); Blood Urea Nitrogen 26 mg/dL (8-23); Calcium 9.7 mg/dL (8.6-10.3); Carbon Dioxide 30 mEq/L (23-29); Chloride 97 mEq/L (98-107); Glucose 195 mg/dL (70-105); Iron 37 mcg/dL (50-170); Magnesium 1.5 mg/dL (1.6-2.6); Osmolality,Calculated 296 (280-300); Potassium 3.6 mEq/L (3.5-5.1); Sodium 138 mEq/L (136-145); Transferrin 253 mg/dL (203-362); eGFR For African Americans > 60 (> 60); eGFR For Non-African Americans 55 (> 60)
[2020-07-21 02:44] LABS: Ferritin 162 ng/mL (10-120)
[2020-07-21 02:50] LABS: Folate 14.5 ng/mL (3.0-16.0)
[2020-07-21] MEDS: *HR* Enoxaparin 80 MG/0.8 ML SYRINGE SQ SCH (05:35)
[2020-07-21] MEDS: Budesonide/Formoterol 160/4.5 1 PUFF INH IH SCH (07:53)
[2020-07-21] MEDS: amLODIPine 5 MG TABLET PO SCH (07:56)
[2020-07-21] MEDS: Aspirin Enteric Coated 81 MG Tablet PO SCH (07:56)
[2020-07-21] MEDS: Insulin LISPRO 300 UNITS/3 ML VIAL SQ SCH ×2 (07:57→12:15)
[2020-07-21] MEDS ORDERED: Folic Acid 1 MG TABLET PO SCH (09:00)
[2020-07-21 11:44] VITALS: BP 119/75
[2020-07-22] MEDS ORDERED: Cyanocobalamin (B-12) 1,000 MCG TABLET PO SCH (09:00)
== END 2020-07-21 13:43 | disposition home health service (06) | DRG 308 ==
LOC: 2ANU → SUATTDRO 16:32
PROVIDERS: ADMIT Internal Medicine; ATTEND Pharmacist

== ENCOUNTER 2020-09-14 07:54 | Inpatient (IN) ==
[2020-09-14] MEDS ORDERED: Ondansetron 4 MG/2 ML VIAL IVP PRN (08:09)
[2020-09-14] MEDS ORDERED: Naloxone 0.4 MG/ML INJ IVP PRN (08:09)
[2020-09-14] MEDS ORDERED: Ringers Solution, Lactated 1,000 ML IVC SCH (08:15)
[2020-09-14] MEDS ORDERED: *HR* Dextrose 50 % in Water (Vial) 50 ML VIAL IVP PRN (08:22)
[2020-09-14] MEDS ORDERED: Dextrose Gel 15 GM/37.5 ML TUBE PO PRN ×2 (08:22)
[2020-09-14] MEDS ORDERED: D5% in Water 1,000 ML IVC PRN (08:22)
[2020-09-14] MEDS: Insulin LISPRO 300 UNITS/3 ML VIAL SQ SCH ×2 (11:39→17:06)
[2020-09-14] MEDS ORDERED: Pantoprazole 40 MG VIAL IVP ONE (11:56)
[2020-09-14] MEDS: Pantoprazole 40 MG in 0.9 % Sodium Chloride Mini Bag 100 ML IVC SCH ×3 (12:34→22:13)
[2020-09-14] MEDS ORDERED: 0.9 % Sodium Chloride 250 ML ONE (13:49)
[2020-09-14] MEDS: *HR* Metoprolol 5 MG/5 ML VIAL IVP PRN (14:19)
[2020-09-14] MEDS ORDERED: 0.9 % Sodium Chloride 500 ML IVC ONE (14:42)
[2020-09-14] MEDS ORDERED: Pantoprazole 40 MG VIAL IVP SCH (18:00)
[2020-09-14 18:04] LABS: Hematocrit 22.2 % (35.3-44.9); Hemoglobin 7.1 g/dL (11.5-15.4)
[2020-09-14] MEDS ORDERED: 0.9 % Sodium Chloride 500 ML ONE (18:34)
[2020-09-14] MEDS: Insulin DETEMIR 100 UNIT/ML X5UNITS SQ SCH (19:59)
[2020-09-14] MEDS: Budesonide/Formoterol 160/4.5 1 PUFF INH IH SCH (22:12)
[2020-09-14 23:58] LABS: Hematocrit 24.2 % (35.3-44.9); Hemoglobin 7.8 g/dL (11.5-15.4)
[2020-09-15] MEDS: Pantoprazole 40 MG in 0.9 % Sodium Chloride Mini Bag 100 ML IVC SCH ×4 (02:44→23:23)
[2020-09-15] MEDS ORDERED: Acetaminophen IV 1,000 MG/100 ML INFUS..BTL IVPB ONE ×2 (03:49→22:42)
[2020-09-15 06:14] LABS: Basophils % 0.4 %; Eosinophils # 0.2 K/mcL (0.0-0.6); Eosinophils % 2.3 %; Hematocrit 23.6 % (35.3-44.9); Hemoglobin 7.3 g/dL (11.5-15.4); Immature Granulocytes % 1.5 % (0-4); Lymphocytes # 1.6 K/mcL (0.6-4.6); Lymphocytes % 16.2 %; Mean Corpuscular HGB Conc 30.9 g/dL (31.6-35.5); Mean Corpuscular Hemoglobin 27.3 pg (28.0-33.3); Mean Corpuscular Volume 88.4 fL (83.0-100.0); Mean Platelet Volume 9.6 fL (9.4-12.4); Monocytes # 0.5 K/mcL (0.0-1.3); Neutrophils # 7.2 K/mcL (1.6-8.9); Nucleated Red Blood Cells 0.5 /100 WBC (0); Platelet Count 189 K/mcL (140-400); Red Blood Count 2.67 M/mcL (3.82-4.97); Red Cell Distribution Width 15.9 % (11.5-14.5); Segmented Neutrophils % 74.6 %; White Blood Count 9.7 K/mcL (4.3-11.1)
[2020-09-15 06:22] LABS: INR 1.6; Prothrombin Time 18.7 Seconds (9.4-12.1)
[2020-09-15 06:40] LABS: BUN/Creatinine Ratio 32 (6-26); Blood Urea Nitrogen 23 mg/dL (8-23); Calcium 8.5 mg/dL (8.6-10.3); Carbon Dioxide 24 mEq/L (23-29); Chloride 109 mEq/L (98-107); Glucose 132 mg/dL (70-105); Magnesium 1.5 mg/dL (1.6-2.6); Osmolality,Calculated 296 (280-300); Potassium 3.8 mEq/L (3.5-5.1); Sodium 140 mEq/L (136-145); eGFR For African Americans > 60 (> 60); eGFR For Non-African Americans > 60 (> 60)
[2020-09-15] MEDS: *HR* Metoprolol 5 MG/5 ML VIAL IVP PRN ×3 (06:41→13:17)
[2020-09-15] MEDS: Insulin LISPRO 300 UNITS/3 ML VIAL SQ SCH ×3 (07:49→17:28)
[2020-09-15] MEDS: Aspirin Enteric Coated 81 MG Tablet PO SCH (08:07)
[2020-09-15] MEDS: Cyanocobalamin (B-12) 1,000 MCG TABLET PO SCH (08:11)
[2020-09-15] MEDS ORDERED: 0.9 % Sodium Chloride 1,000 ML ONE (08:59)
[2020-09-15] MEDS ORDERED: 0.9 % Sodium Chloride 1,000 ML IVC ONE (09:02)
[2020-09-15] MEDS: Budesonide/Formoterol 160/4.5 1 PUFF INH IH SCH ×2 (10:41→20:03)
[2020-09-15 12:41] LABS: Hematocrit 23.9 % (35.3-44.9); Hemoglobin 7.5 g/dL (11.5-15.4)
[2020-09-15] MEDS: Sodium Bicarbonate 150 MEQ in D5% in Water 1,000 ML IVC SCH (13:00)
[2020-09-15] MEDS: Metoprolol XL (24 HR) Succ 50 MG TAB.ER.24H PO SCH (13:05)
[2020-09-15 13:06] LABS: Albumin 3.7 g/dL (3.5-5.7); Albumin/Globulin Ratio 1.8 (1.1-2.2); Bilirubin,Direct 0.1 mg/dL (0.0-0.2); Bilirubin,Indirect 0.7 mg/dL (0.0-1.0); Bilirubin,Total 0.8 mg/dL (0.3-1.0); Globulin 2.1 g/dL (2.4-3.5); Total Protein 5.8 g/dL (6.4-8.9); Troponin I 0.08 ng/mL (< 0.04)
[2020-09-15 13:17] LABS: Thyroid Stimulating Hormone 1.527 mcIU/mL (0.340-5.600)
[2020-09-15] MEDS: Insulin DETEMIR 100 UNIT/ML X5UNITS SQ SCH (20:44)
[2020-09-16] MEDS: Sodium Bicarbonate 150 MEQ in D5% in Water 1,000 ML IVC SCH ×2 (02:32→10:56)
[2020-09-16] MEDS: Levalbuterol Neb 0.63 MG/3 ML IH PRN ×3 (03:47→22:16)
[2020-09-16] MEDS: Pantoprazole 40 MG in 0.9 % Sodium Chloride Mini Bag 100 ML IVC SCH ×4 (06:17→20:14)
[2020-09-16 07:29] LABS: Basophils % 0.3 %; Eosinophils # 0.2 K/mcL (0.0-0.6); Hematocrit 22.3 % (35.3-44.9); Hemoglobin 6.8 g/dL (11.5-15.4); Immature Granulocytes % 0.8 % (0-4); Lymphocytes # 1.1 K/mcL (0.6-4.6); Lymphocytes % 14.2 %; Mean Corpuscular HGB Conc 30.5 g/dL (31.6-35.5); Mean Corpuscular Volume 88.5 fL (83.0-100.0); Mean Platelet Volume 9.4 fL (9.4-12.4); Monocytes # 0.4 K/mcL (0.0-1.3); Monocytes % 4.8 %; Neutrophils # 6.1 K/mcL (1.6-8.9); Platelet Count 182 K/mcL (140-400); Red Blood Count 2.52 M/mcL (3.82-4.97); Red Cell Distribution Width 16.4 % (11.5-14.5); Segmented Neutrophils % 76.9 %
[2020-09-16 07:41] LABS: BUN/Creatinine Ratio 15 (6-26); Blood Urea Nitrogen 11 mg/dL (8-23); Calcium 8.6 mg/dL (8.6-10.3); Carbon Dioxide 34 mEq/L (23-29); Chloride 105 mEq/L (98-107); Glucose 97 mg/dL (70-105); Magnesium 1.7 mg/dL (1.6-2.6); Osmolality,Calculated 297 (280-300); Potassium 3.2 mEq/L (3.5-5.1); Sodium 144 mEq/L (136-145); eGFR For African Americans > 60 (> 60); eGFR For Non-African Americans > 60 (> 60)
[2020-09-16] MEDS: Insulin LISPRO 300 UNITS/3 ML VIAL SQ SCH ×3 (08:02→16:00)
[2020-09-16] MEDS: Metoprolol XL (24 HR) Succ 50 MG TAB.ER.24H PO SCH (10:00)
[2020-09-16] MEDS: Aspirin Enteric Coated 81 MG Tablet PO SCH (10:01)
[2020-09-16] MEDS: Cyanocobalamin (B-12) 1,000 MCG TABLET PO SCH (10:01)
[2020-09-16] MEDS: Budesonide/Formoterol 160/4.5 1 PUFF INH IH SCH ×2 (10:14→22:17)
[2020-09-16] MEDS ORDERED: 0.9 % Sodium Chloride 250 ML ONE (13:59)
[2020-09-16] MEDS: Insulin DETEMIR 100 UNIT/ML X5UNITS SQ SCH (20:15)
[2020-09-16] MEDS ORDERED: *HR* LORazepam 2 MG/ML VIAL IVP ONE (21:00)
[2020-09-17] MEDS: Levalbuterol Neb 1.25 MG/3 ML IH SCH ×5 (00:27→21:19)
[2020-09-17] MEDS: Pantoprazole 40 MG in 0.9 % Sodium Chloride Mini Bag 100 ML IVC SCH ×6 (01:30→21:35)
[2020-09-17 01:46] LABS: Basophils % 0.4 %; Eosinophils # 0.3 K/mcL (0.0-0.6); Eosinophils % 3.3 %; Hematocrit 25.9 % (35.3-44.9); Hemoglobin 7.9 g/dL (11.5-15.4); Lymphocytes # 1.2 K/mcL (0.6-4.6); Lymphocytes % 13.5 %; Mean Corpuscular HGB Conc 30.5 g/dL (31.6-35.5); Mean Corpuscular Hemoglobin 27.4 pg (28.0-33.3); Mean Corpuscular Volume 89.9 fL (83.0-100.0); Mean Platelet Volume 9.6 fL (9.4-12.4); Monocytes # 0.5 K/mcL (0.0-1.3); Monocytes % 5.5 %; Neutrophils # 6.9 K/mcL (1.6-8.9); Platelet Count 177 K/mcL (140-400); Red Blood Count 2.88 M/mcL (3.82-4.97); Red Cell Distribution Width 15.8 % (11.5-14.5); Segmented Neutrophils % 76.3 %
[2020-09-17 02:00] LABS: BUN/Creatinine Ratio 16 (6-26); Blood Urea Nitrogen 12 mg/dL (8-23); Calcium 8.6 mg/dL (8.6-10.3); Carbon Dioxide 34 mEq/L (23-29); Chloride 104 mEq/L (98-107); Glucose 100 mg/dL (70-105); Magnesium 1.6 mg/dL (1.6-2.6); Osmolality,Calculated 296 (280-300); Potassium 3.7 mEq/L (3.5-5.1); Sodium 143 mEq/L (136-145); eGFR For African Americans > 60 (> 60); eGFR For Non-African Americans > 60 (> 60)
[2020-09-17] MEDS ORDERED: Metoclopramide 10 MG/2 ML VIAL IVP ONE (06:00)
[2020-09-17] MEDS: Insulin LISPRO 300 UNITS/3 ML VIAL SQ SCH ×3 (07:44→16:15)
[2020-09-17] MEDS ORDERED: Lidocaine -MPF 2% 2 ML VIAL ONE (08:30)
[2020-09-17] MEDS ORDERED: *HR* Propofol 200 MG/20 ML VIAL IVP ONE (08:30)
[2020-09-17] MEDS ORDERED: *HR* PHENYLEPHRINE 1,000 MCG/10 ML SYRINGE IVP ONE (08:56)
[2020-09-17] MEDS: Budesonide/Formoterol 160/4.5 1 PUFF INH IH SCH ×2 (09:18→21:19)
[2020-09-17] MEDS: Metoprolol XL (24 HR) Succ 50 MG TAB.ER.24H PO SCH (09:49)
[2020-09-17] MEDS: Cyanocobalamin (B-12) 1,000 MCG TABLET PO SCH (09:49)
[2020-09-17] MEDS: Aspirin Enteric Coated 81 MG Tablet PO SCH (09:49)
[2020-09-17] MEDS: *HR* Metoprolol 5 MG/5 ML VIAL IVP PRN (23:13)
[2020-09-17] MEDS: Insulin DETEMIR 100 UNIT/ML X5UNITS SQ SCH (23:32)
[2020-09-17] MEDS ORDERED: DilTIAZem 50 MG/50 ML IV.SOLN IVC SCH (23:45)
[2020-09-18] MEDS ORDERED: *HR* Metoprolol 5 MG/5 ML VIAL IVP ONE (02:29)
[2020-09-18] MEDS: Pantoprazole 40 MG in 0.9 % Sodium Chloride Mini Bag 100 ML IVC SCH ×3 (03:05→13:37)
[2020-09-18] MEDS: Levalbuterol Neb 1.25 MG/3 ML IH SCH (03:39)
[2020-09-18 04:44] LABS: Basophils % 0.4 %; Eosinophils # 0.4 K/mcL (0.0-0.6); Hematocrit 27.5 % (35.3-44.9); Hemoglobin 8.2 g/dL (11.5-15.4); Immature Granulocytes % 0.5 % (0-4); Lymphocytes # 1.1 K/mcL (0.6-4.6); Lymphocytes % 11.2 %; Mean Corpuscular HGB Conc 29.8 g/dL (31.6-35.5); Mean Corpuscular Hemoglobin 27.2 pg (28.0-33.3); Mean Corpuscular Volume 91.1 fL (83.0-100.0); Mean Platelet Volume 9.9 fL (9.4-12.4); Monocytes # 0.6 K/mcL (0.0-1.3); Neutrophils # 7.4 K/mcL (1.6-8.9); Platelet Count 191 K/mcL (140-400); Red Blood Count 3.02 M/mcL (3.82-4.97); Segmented Neutrophils % 77.9 %; White Blood Count 9.5 K/mcL (4.3-11.1)
[2020-09-18] MEDS ORDERED: Furosemide 20 MG/2 ML VIAL IVP ONE (04:45)
[2020-09-18 05:03] LABS: BUN/Creatinine Ratio 16 (6-26); Blood Urea Nitrogen 14 mg/dL (8-23); Calcium 9.1 mg/dL (8.6-10.3); Carbon Dioxide 31 mEq/L (23-29); Chloride 103 mEq/L (98-107); Glucose 189 mg/dL (70-105); Magnesium 1.4 mg/dL (1.6-2.6); Osmolality,Calculated 300 (280-300); Potassium 3.6 mEq/L (3.5-5.1); Sodium 142 mEq/L (136-145); eGFR For African Americans > 60 (> 60); eGFR For Non-African Americans > 60 (> 60)
[2020-09-18 05:53] LABS: INR 1.2; Prothrombin Time 13.6 Seconds (9.4-12.1)
[2020-09-18 05:55] LABS: Activated Partial Thrombo Time 26.2 Seconds (26.0-36.0)
[2020-09-18] MEDS ORDERED: Levalbuterol Neb 0.63 MG/3 ML IH PRN (07:13)
[2020-09-18] MEDS ORDERED: Ringers Solution, Lactated 1,000 ML IVC ONE (07:16)
[2020-09-18] MEDS ORDERED: Ringers Solution, Lactated 1,000 ML ONE (07:22)
[2020-09-18] MEDS: Budesonide/Formoterol 160/4.5 1 PUFF INH IH SCH (07:33)
[2020-09-18] MEDS: Insulin LISPRO 300 UNITS/3 ML VIAL SQ SCH ×2 (08:57→11:41)
[2020-09-18] MEDS: Aspirin Enteric Coated 81 MG Tablet PO SCH (09:05)
[2020-09-18] MEDS: Cyanocobalamin (B-12) 1,000 MCG TABLET PO SCH (09:05)
[2020-09-18] MEDS: Metoprolol XL (24 HR) Succ 50 MG TAB.ER.24H PO SCH (09:06)
[2020-09-18] MEDS: *HR* Metoprolol 5 MG/5 ML VIAL IVP PRN ×2 (10:36→17:18)
[2020-09-18 15:52] VITALS: BP 100/86
[2020-09-18] MEDS ORDERED: *HR* LORazepam 2 MG/ML VIAL IVP STA (18:21)
== END 2020-09-18 18:53 | disposition short-term general hospital (02) | DRG 811 ==
LOC: PREOBSVTOIN 08:26 → 2ANU 09:18 → SUATTDRO 09:18 → 2NNU 09-18 08:30
PROVIDERS: ADMIT Internal Medicine; ATTEND Pharmacist